=== PATIENT | male | born 2000 | race Caucasian/White ===

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

== ENCOUNTER 2022-02-20 17:44 | Emergency (ER) | payer BC ==
[2022-02-20] MEDS ORDERED: SODIUM CHLORIDE 0.9% 1,000 ML IV STA (18:40)
[2022-02-20] MEDS ORDERED: FAMOTIDINE 20 MG/2 ML VIAL IV STA (18:40)
[2022-02-20 19:43] LABS: ALT 193 U/L (4-49); African American GFR (CKD) >90 (>60 ml/min/1.73 sqM); Albumin 4.9 g/dL (3.5-5.0); Amylase 69 U/L (30-110); Anion Gap 10 mmol/L; Blood Urea Nitrogen 10 mg/dL (9-20); Carbon Dioxide 24 mmol/L (22-30); Chloride 105 mmol/L (98-107); Glucose 99 mg/dL (74-99); Lipase 69 U/L (23-300); Non-African American GFR(CKD) >90 (>60 ml/min/1.73 sqM); Sodium 139 mmol/L (137-145); Total Bilirubin 1.4 mg/dL (0.2-1.3); Total Protein 7.9 g/dL (6.3-8.2)
[2022-02-20 19:45] LABS: Potassium 4.9 mmol/L (3.5-5.1)
[2022-02-20 19:46] LABS: AST 293 U/L (17-59); Alkaline Phosphatase 87 U/L (38-126)
[2022-02-20 19:57] LABS: Basophils % (A) 0 %; Eosinophils # (A) 0.1 k/uL (0-0.7); Eosinophils % (A) 1 %; HCT 50.4 % (39.0-53.0); HGB 16.7 gm/dL (13.0-17.5); Lymphocytes # (A) 1.4 k/uL (1.0-4.8); Lymphocytes % (A) 13 %; MCH 29.5 pg (25.0-35.0); MCV 89.3 fL (80.0-100.0); Mean Platelet Volume 8.5; Monocytes # (A) 0.6 k/uL (0-1.0); Monocytes % (A) 5 %; Neutrophils # (A) 8.4 k/uL (1.3-7.7); Neutrophils % (A) 79 %; Platelet Count 171 k/uL (150-450); RBC 5.65 m/uL (4.30-5.90); RDW 12.6 % (11.5-15.5); WBC 10.6 k/uL (4.0-11.0)
--- NOTE | 2022-02-20 20:06 | XR ---
EXAMINATION TYPE: XR abdomen acute w cxr DATE OF EXAM: 02/20/2022 COMPARISON: NONE HISTORY: Abdominal pain TECHNIQUE: 4 views FINDINGS: Heart and mediastinum are normal. Lungs are clear of infiltrate. Pulmonary vascularity is n ormal. There are no hilar masses. Bowel gas pattern is normal. No sign of intestinal obstruction or pneumoperitoneum. Fecal pattern is normal. No calcifications seen over the kidneys. IMPRESSION: Nonacute abdomen. Normal chest.
[2022-02-20] MEDS ORDERED: MAG HYDROX/AL HYDROX/SIMETH 30 ML, HYOSCYAMINE ELIXIR 10 ML, LIDOCAINE VISCOUS 2% 10 ML PO STA ×3 (20:40)
[2022-02-20 20:59] LABS: Prothrombin Time 10.7 sec (9.0-12.0)
--- NOTE | 2022-02-20 21:20 | ED ---
Abdominal Pain HPI - General Chief Complaint: Abdominal Pain Stated Complaint: abd pain Time Seen by Provider: 02/20/22 18:29 Source: patient Mode of arrival: ambulatory Limitations: no limitations - History of Present Illness Initial Comments: Patient is a 21-year-old male presenting with chief complaint of epigastric pain. Patient states that the pain began today, it is a throbbing pain, located mainly in the epigastric region and travels somewhat towards the left side. Patient states that it comes in waves, earlier when away and then came back a fter eating lunch. He states there is some pain relieved with lying down. He has not taken any supportive treatment at home. He denies any chest pain, shortness of breath, palpitations, nausea, vomiting, diarrhea, constipation, hematochezia, melena, dysuria, hematuria, urgency, frequency, fever, chills, weakness, numbness, tingling. - Related Data Home Medications Medication Instructions Recorded Confirmed No Known Home Medications 10/03/15 10/03/15 Allergies Allergy/AdvReac Type Severity Reaction Status Date / Time No Known Allergies Allergy Verified 02/20/22 18:09 Review of Systems ROS Statement: Those systems with pertinent positive or pertinent negative responses have been documented in the HPI. ROS Other: All systems not noted in ROS Statement are negative. Past Medical History Past Medical History: Pneumonia History of Any Multi-Drug Resistant Organisms: None Reported Past Surgical History: No Surgical Hx Reported Past Psychological History: No Psychological Hx Reported Smoking Status: Current every day smoker, Vaper Past Alcohol Use History: Occasional Past Drug Use History: Marijuana General Exam Limitations: no limitations General appearance: alert, in no apparent distress Head exam: Present: atraumatic, normocephalic, normal inspection Eye exam: Present: normal appearance, EOMI. Absent: scleral icterus Neck exam: Present: normal inspection Respiratory exam: Present: normal lung sounds bilaterally. Absent: respiratory distress, wheezes, rales, rhonchi, stridor Cardiovascular Exam: Present: regular rate, normal rhythm, normal heart sounds. Absent: systolic murmur, diastolic murmur, rubs, gallop, clicks GI/Abdominal exam: Present: soft, normal bowel sounds. Absent: distended, tenderness, guarding, rebound, rigid Back exam: Present: normal inspection. Absent: CVA tenderness (R), CVA tenderness (L) Neurological exam: Present: alert, oriented X3, CN II-XII intact Psychiatric exam: Present: normal affect, normal mood Skin exam: Present: warm, dry, intact, normal color. Absent: rash Course Vital Signs 02/20/22 02/20/22 18:06 22:51 Temperature 98.1 F 98.2 F Pulse Rate 86 84 Respiratory 16 18 Rate Blood Pressure 140/70 138/84 O2 Sat by Pulse 95 96 Oximetry Medical Decision Making - Medical Decision Making Patient is a 21-year-old male presenting with chief complaint of abdominal pain. Located mainly in the epigastric region, with some radiation over to the left side. On examination palpation does not increase the pain. There is no CVA tenderness. Abdomen is soft, nondistended. CBC, coags, and electrolytes are WNL. There is some transaminitis. Acute abdominal series with chest x-ray is negative. Abdominal ultrasound shows multiple gallstones without dilated ducts or thickened gallbladder wall. Patient states that his pain is not present at this time. He appears stable for discharge with outpatient follow-up at this time. I instructed him to follow up with general surgery and his PCP. Report back to ER if any new or worsening symptoms. Answered all questions. I discussed return parameters alarm symptoms. Patient conveyed verbal understanding and agreed to the plan. I discussed this case with my attending Dr. Babin. - Lab Data Result diagrams: 02/20/22 19:20 02/20/22 19:20 Lab Results 02/20/22 02/20/22 02/20/22 Range/Units 19:20 19:20 19:20 WBC 10.6 (4.0-11.0) k/uL RBC 5.65 (4.30-5.90) m/uL Hgb 16.7 (13.0-17.5) gm/dL Hct 50.4 (39.0-53.0) % MCV 89.3 (80.0-100.0) fL MCH 29.5 (25.0-35.0) pg MCHC 33.0 (31.0-37.0) g/dL RDW 12.6 (11.5-15.5) % Plt Count 171 (150-450) k/uL MPV 8.5 Neutrophils % 79 % Lymphocytes % 13 % Monocytes % 5 % Eosinophils % 1 % Basophils % 0 % Neutrophils # 8.4 H (1.3-7.7) k/uL Lymphocytes # 1.4 (1.0-4.8) k/uL Monocytes # 0.6 (0-1.0) k/uL Eosinophils # 0.1 (0-0.7) k/uL Basophils # 0.0 (0-0.2) k/uL PT (9.0-12.0) sec INR (<1.2) APTT (22.0-30.0) sec Sodium 139 (137-145) mmol/L Potassium 4.9 (3.5-5.1) mmol/L Chloride 105 (98-107) mmol/L Carbon Dioxide 24 (22-30) mmol/L Anion Gap 10 mmol/L BUN 10 (9-20) mg/dL Creatinine 0.56 L (0.66-1.25) mg/dL Est GFR (CKD-EPI)AfAm >90 (>60 ml/min/1.73 sqM) Est GFR (CKD-EPI)NonAf >90 (>60 ml/min/1.73 sqM) Glucose 99 (74-99) mg/dL Plasma Lactic Acid Zen 1.1 (0.7-2.0) mmol/L Calcium 9.0 (8.4-10.2) mg/dL Total Bilirubin 1.4 H (0.2-1.3) mg/dL AST 293 H (17-59) U/L ALT 193 H (4-49) U/L Alkaline Phosphatase 87 (38-126) U/L Total Protein 7.9 (6.3-8.2) g/dL Albumin 4.9 (3.5-5.0) g/dL Amylase 69 (30-110) U/L Lipase 69 (23-300) U/L 02/20/22 Range/Units 20:15 WBC (4.0-11.0) k/uL RBC (4.30-5.90) m/uL Hgb (13.0-17.5) gm/dL Hct (39.0-53.0) % MCV (80.0-100.0) fL MCH (25.0-35.0) pg MCHC (31.0-37.0) g/dL RDW (11.5-15.5) % Plt Count (150-450) k/uL MPV Neutrophils % % Lymphocytes % % Monocytes % % Eosinophils % % Basophils % % Neutrophils # (1.3-7.7) k/uL Lymphocytes # (1.0-4.8) k/uL Monocytes # (0-1.0) k/uL Eosinophils # (0-0.7) k/uL Basophils # (0-0.2) k/uL PT 10.7 (9.0-12.0) sec INR 1.0 (<1.2) APTT 25.0 (22.0-30.0) sec Sodium (137-145) mmol/L Potassium (3.5-5.1) mmol/L Chloride (98-107) mmol/L Carbon Dioxide (22-30) mmol/L Anion Gap mmol/L BUN (9-20) mg/dL Creatinine (0.66-1.25) mg/dL Est GFR (CKD-EPI)AfAm (>60 ml/min/1.73 sqM) Est GFR (CKD-EPI)NonAf (>60 ml/min/1.73 sqM) Glucose (74-99) mg/dL Plasma Lactic Acid Zen (0.7-2.0) mmol/L Calcium (8.4-10.2) mg/dL Total Bilirubin (0.2-1.3) mg/dL AST (17-59) U/L ALT (4-49) U/L Alkaline Phosphatase (38-126) U/L Total Protein (6.3-8.2) g/dL Albumin (3.5-5.0) g/dL Amylase (30-110) U/L Lipase (23-300) U/L Disposition Clinical Impression: Cholelithiasis Disposition: HOME SELF-CARE Condition: Good Instructions (If sedation given, give patient instructions): Gallstones (ED) Additional Instructions: Report back to ER with any worsening symptoms, including but not limited to fever, chills, rapid heart rate, increasing pain, vomiting. Follow-up with PCP and surgery. Is patient prescribed a controlled substance at d/c from ED?: No Referrals: Nonstaff,Physician [Primary Care Provider] - 1-2 days Nirmal Pérez MD [Medical Doctor] - 1-2 days Time of Disposition: 22:23
--- NOTE | 2022-02-20 22:06 | US ---
EXAMINATION TYPE: US abdomen limited DATE OF EXAM: 02/20/2022 COMPARISON: NONE CLINICAL HISTORY: epigastric pain. abd pain after eating today, has happened 1 other time EXAM MEASUREMENTS: Liver Length: 15.6 cm Gallbladder Wall: 0.2 cm CBD: 0.6 cm Right Kidney: 10.9 x 5.5 x 4.9 cm overlying bowel gas limits exam Pancreas: limited views appeared wnl Liver: wnl Gallbladder: fundal stones seen with no wall thickening, 10.5 in length Evidence for sonographic Gonzalez's sign: no CBD: wnl Right Kidney: wnl IMPRESSION: There is large gallbladder with multiple gallstones. No dilated ducts. No discrete liver mass. Right kidney appears normal. No sign of pancreatic mass.
[2022-02-20 22:52] VITALS: BP 138/84; PULSE 84; RESP 18; TEMP 98.2
== END 2022-02-20 22:53 | disposition home or self-care (01) ==
LOC: EC 17:44
DX: K80.20 Calculus of gallbladder without cholecystitis without obstruction (principal); F17.290 Nicotine dependence, other tobacco product, uncomplicated
CPT/HCPCS: 36415; 74022; 76705; 80053; 82150; 83605; 83690; 85025; 85610; 85730; 93005; 96361; 96374; 99284